=== PATIENT | male | born 1975 | race African-American/Black ===

== ENCOUNTER 2023-05-11 12:56 | Emergency (ER) | payer OTHER ==
[2023-05-11 13:11] VITALS: BP 137/92; PULSE 68; RESP 18; TEMP 98.8; BMI 35.6
[2023-05-11] MEDS ORDERED: IBUPROFEN 600 MG TABLET (FP) PO ONE ×2 (13:19→13:42)
== END 2023-05-11 14:17 | disposition home or self-care (01) ==
LOC: FER 12:56
CPT/HCPCS: 73630-TC-LT

== ENCOUNTER 2023-09-19 13:41 | Emergency (ER) | payer OTHER ==
[2023-09-19 13:54] VITALS: BP 143/85; PULSE 73; RESP 18; TEMP 98.3; BMI 35.3
[2023-09-19] MEDS ORDERED: IBUPROFEN 400 MG TABLET (FP) PO ONE (14:23)
[2023-09-19] MEDS ORDERED: IBUPROFEN 600 MG TABLET (FP) PO ONE (14:56)
== END 2023-09-19 15:46 | disposition home or self-care (01) ==
LOC: FER 13:41
DX: M25.572 Pain in left ankle and joints of left foot (principal); S93.492A Sprain of other ligament of left ankle, initial encounter; R22.41 Localized swelling, mass and lump, right lower limb; X50.1XXA Overexertion from prolonged static or awkward postures, initial encounter
CPT/HCPCS: 73610-TC-LT-FY; 73630-TC-LT; 99283-25